=== PATIENT | female | born 1980 | race Caucasian/White ===

== ENCOUNTER 2018-12-09 09:10 | Emergency (ER) | payer BC ==
[2018-12-09 09:18] VITALS: BP 126/88
--- NOTE | 2018-12-09 10:22 | UC ---
UC General HPI - HPI Summary HPI Summary: 38 yo female c/o cough, sinus congestion x approx 1 month. Worse this past week. no fever / chills. Tired. No GI / issues. No rash. Tired of coughing. No cp / hemoptysis. - History of Current Complaint Chief Complaint: UCRespiratory Stated Complaint: COUGH,CONGESTION Time Seen by Provider: 12/09/18 10:22 Hx Obtained From: Patient Hx Last Menstrual Period: 12/07/18 Pain Intensity: 6 - Allergy/Home Medications Allergies/Adverse Reactions: Allergies Allergy/AdvReac Type Severity Reaction Status Date / Time Tetracyclines Allergy blood shot Verified 12/09/18 09:18 eyes and fever Home Medications: Home Medications Norethindrone/Eth Est .01/12NF [June (NF)] 1 tab PO DAILY 12/09/18 [ History Confirmed 12/09/18] PMH/Surg Hx/FS Hx/Imm Hx Previously Healthy: Yes - Surgical History Surgical History: None - Family History Known Family History: Positive: Other - childhood routine issues - Social History Alcohol Use: None Substance Use Type: None Smoking Status (MU): Never Smoked Tobacco Have You Smoked in the Last Year: No - Immunization History Most Recent Influenza Vaccination: 05/22/16 Most Recent Tetanus Shot: 06/30/13 Most Recent Pneumonia Vaccination: n/a Review of Systems All Other Systems Reviewed And Are Negative: Yes Constitutional: Positive: Other - see hpi Skin: Positive: Other - see hpi Eyes: Positive: Other - see hpi ENT: Positive: Sore Throat, Nasal Discharge, Sinus Congestion, Other - see hpi Respiratory: Positive: Cough, Other - see hpi Cardiovascular: Positive: Other - see hpi Gastrointestinal: Positive: Other - see hpi Genitourinary: Positive: Other - see hpi Musculoskeletal: Positive: Negative Neurological: Positive: Negative Psychological: Positive: Negative Is Patient Immunocompromised?: No Physical Exam Triage Information Reviewed: Yes Appearance: Well-Appearing, Well-Nourished Vital Signs: Initial Vital Signs Temp 98.8 F 12/09/18 09:15 Pulse 93 12/09/18 09:15 Resp 18 12/09/18 09:15 BP 126/88 12/09/18 09:15 Pulse Ox 99 12/09/18 09:15 Vital Signs Reviewed: Yes Eye Exam: Normal - grossly normal, but a little red and watery ENT: Positive: Pharyngeal erythema - mild post pharyng redness, no sores / exudates, Nasal congestion, TM dull - L TM dull, rtx'd. R TM ok Neck exam: Normal Neck: Positive: Supple, No Lymphadenopathy Respiratory Exam: Other - + scattered exp wheeze + rhonchorus cough BS equal Cardiovascular Exam: Normal Cardiovascular: Positive: RRR, No Murmur, Pulses Normal, Brisk Capillary Refill Abdominal Exam: Normal Abdomen Description: Positive: Nontender Musculoskeletal Exam: Normal Neurological Exam: Normal Psychological Exam: Normal - conversing easily and appropriately Skin Exam: Normal - no visible or reported rash Course/Dx - Course Course Of Treatment: reviewed coa / tx plan Questions as posed answered to the best of my ability. - Diagnoses Provider Diagnosis: Bronchitis, Bronchospasm, Sinusitis Discharge - Sign-Out/Discharge Documenting (check all that apply): Patient Departure All imaging exams completed and their final reports reviewed: No Studies - Discharge Plan Condition: Stable Disposition: HOME Patient Education Materials: Acute Bronchitis (ED), Bronchospasm (ED), Sinusitis (ED) Referrals: Chelsea Carranza MD [Primary Care Provider] - - Billing Disposition and Condition Condition: STABLE Disposition: Home
== END 2018-12-09 10:50 | disposition home or self-care (01) ==
LOC: UCEAST 09:10
DX: J20.9 Acute bronchitis, unspecified (principal); J32.9 Chronic sinusitis, unspecified; Z88.1 Allergy status to other antibiotic agents
CPT/HCPCS: 99212; G0463